=== PATIENT | male | born 1990 | race Caucasian/White ===

== ENCOUNTER → 2017-12-13 | Outpatient (CLI) | payer OTHER ==
[~2017-12-13] MED LIST: ATROPINE SULFATE 0.1 MG/ML 5ML SYR ONE; DOBUTamine HCL 12.5 MG/ML 20 ML VIAL ONE; METOPROLOL TARTRATE 1 MG/ML VIAL ONE
--- NOTE | 2017-12-18 09:40 | DOBUTAMINE ECHO ---
*NOTICE TO RECEIVING [employer] This information is strictly Confidential and protected under [place] law. [place] law prohibits you from making any further disclosure of this information unless further disclosure is expressly permitted by the written consent of the person to whom it pertains or is authorized by law. A general authorization for the release of medical or other information is not sufficient for this purpose. Hospital accepts no responsibility if the information is made available to any other person, INCLUDING THE PATIENT. Interpretation Summary * Name: ELIZABETH COLLIER [id number] Study Date: 12/13/2017 09:55 AM BP: 115/70 mmHg * Patient Location: [facility] HR: 60 * : 1990 (M/d/yyyy) Gender: Male Height: 71 in * Age: 27 yrs Ethnicity: CA Weight: 186 lb * Ordering Physician: Mario Wilhelm * Referring Physician: Mario Wilhelm * Performed By: Owen Arzola RCS * * Reason For Study: CHEST PAIN * BSA: 2.0 m2 * -- Conclusions -- * Borderline left atrial enlargement. * Right ventricular systolic pressure is normal. * Left ventricular systolic function is normal. * Abnormal dobutamine echocardiogram concerning for diffuse ischemia. Procedure Details * DOBUTAMINE ECHO, CPT#[id number] * ECHO COLOR FLOW, CPT #[id number] * ECHO DOPPLER, CPT #[id number] Left Ventricular Findings with Stress * Abnormal dobutamine echocardiogram concerning for diffuse ischemia. Left Ventricle * The left ventricle is normal in size. * There is normal left ventricular wall thickness. * Ejection Fraction = 55-60%. * Left ventricular systolic function is normal. * The left ventricular wall motion is normal at rest. Right Ventricle * The right ventricle is normal in size and function. * The right ventricular systolic function is normal as assessed by tricuspid annular plane systolic excursion (TAPSE) (normal >1.5 cm). Atria * Borderline left atrial enlargement. * Right atrial size is normal. Mitral Valve * The mitral valve anatomy is normal. * There is trace mitral regurgitation. Tricuspid Valve * The tricuspid valve is not well visualized, but is grossly normal. * There is trace tricuspid regurgitation. * Right ventricular systolic pressure is normal. Aortic Valve * The aortic valve is normal in structure and function. * No hemodynamically significant valvular aortic stenosis. * There is no significant aortic regurgitation. Pulmonic Valve * The pulmonic valve is not well seen, but is grossly normal. * Mild pulmonic valvular regurgitation. Great Vessels * The aortic root is normal size. Pericardium * There is no pericardial effusion. Stress Parameters * Normal baseline electrocardiogram. * At peak dobutamine infusion there was upsloping ST depression which improved but became horizontal and slightly downsloping in late recovery. There was also development of frequent ventricular ectopy in the early part of the dobutamine infusion. * The stress portion of this study was personally supervised by the undersigned interpreting physician. * Rest heart rate was '61' BPM. * Rest blood pressure was '115/70' * Maximum heart rate achieved was 155 bpm. * Maximum heart rate was 80 % of maximum age-predicted heart rate. * Maximum blood pressure was '199/116' * Maximum Dobutamine infusion rate was '50' mcg/kg/min. * A total of 2 mg of intravenous Atropine was used to supplement Dobutamine for heart rate response. * Dobutamine infusion was terminated due to end of protocol/maximum medication doses * A total of 15 mg of IV Metoprolol was administered to reverse Dobutamine-induced tachycardia. * The patient did not exhibit any symptoms during drug infusion. Left Ventricular Findings with Stress * Baseline EKG was normal There were significant ST segment changes with peak dobutamine infusion which persisted into recovery There was significant ventricular ectopy during the early phase of dobutamine infusion Baseline echocardiographic images were normal There was normal augmentation at low dose dobutamine with worsening of function at peak infusion and into recovery There are no discrete wall motion abnormalities but generalized reduced LV function and poor augmentation suggestive of diffuse ischemia. No symptoms reported MMode 2D Measurements and Calculations IVSd 1.1 cm IVSs 1.4 cm LVIDd 5.0 cm LVIDs 3.8 cm LVPWd 1.1 cm LVPWs 1.3 cm IVS/LVPW 1.0 FS 25.3 % EDV(Teich) 120.1 ml ESV(Teich) 60.3 ml EF(Teich) 49.8 % EDV(cubed) 127.5 ml ESV(cubed) 53.0 ml EF(cubed) 58.4 % % IVS thick 25.4 % % LVPW thick 26.1 % LV mass(C)d 200.8 grams LV mass(C)dI 98.2 grams/m\S\2 LV mass(C)s 178.8 grams LV mass(C)sI 87.4 grams/m\S\2 SV(Teich) 59.8 ml SI(Teich) 29.2 ml/m\S\2 SV(cubed) 74.4 ml SI(cubed) 36.4 ml/m\S\2 Ao root diam 3.8 cm Ao root area 11.6 cm\S\2 ACS 2.5 cm LA dimension 3.9 cm asc Aorta Diam 3.2 cm LA/Ao 1.0 Doppler Measurements and Calculations MV E max shayla 53.7 cm/sec MV A max shayla 49.9 cm/sec MV E/A 1.1 MV P1/2t max shayla 61.5 cm/sec MV P1/2t 121.5 msec MVA(P1/2t) 1.8 cm\S\2 MV dec slope 148.2 cm/sec\S\2 MV dec time 0.34 sec Ao V2 max 128.3 cm/sec Ao max PG 6.6 mmHg Ao max PG (full) 3.7 mmHg LV V1 max PG 2.9 mmHg LV V1 max 84.5 cm/sec PA V2 max 100.9 cm/sec PA max PG 4.1 mmHg PI max shayla 183.3 cm/sec PI max PG 13.5 mmHg PI dec slope 129.9 cm/sec\S\2 PI P1/2t 413.5 msec TR max shayla 216.7 cm/sec
== END | disposition home or self-care (01) ==
LOC: C.CPL 09:48
PROVIDERS: ATTEND Internal Medicine
DX: R07.9 Chest pain, unspecified (principal); F28 Other psychotic disorder not due to a substance or known physiological condition; Z79.899 Other long term (current) drug therapy; F40.10 Social phobia, unspecified

== ENCOUNTER → 2018-04-04 | Day surgery (SDC) | payer OTHER ==
[~2018-04-04] VITALS: Ht 180.3 cm; Wt 84.0 kg
[~2018-04-04] MED LIST changes: +ABL/15 PO; +ASPI81TA28 PO; -ATROPINE SULFATE 0.1 MG/ML 5ML SYR ONE; +BENZ-89 PO; +CICL160A INFIL; +DIPH50TA10 PO; -DOBUTamine HCL 12.5 MG/ML 20 ML VIAL ONE; +FENTANYL CITRATE INJ 50 MCG/1 ML 2 ML VIAL ONE; +HEPARIN SOD (PORCINE) 1000 UNIT/ML 10 ML VIAL ONE; +LEVA45AE INH; +METO-551 PO; -METOPROLOL TARTRATE 1 MG/ML VIAL ONE; +MIDAZOLAM HCL 1 MG/ML 2ML VIAL ONE; +NITROGLYCERIN/D5W 100MCG/ML 20ML SYR ONE; +NTRGSL/4 SL; +NiCARDipine HCL INJ 2.5 MG/ML 10 ML AMP ONE; +PRX/40 PO
[2018-04-04 07:15] VITALS: BP 105/57; PULSE 61; TEMP 36.6; O2SAT 97; Ht 180.3 cm; Wt 84.0 kg
--- NOTE | 2018-04-04 07:52 | Pre Sedation Assessment ---
Pre Sedation Assessment General Date of Sedation: Apr 04, 2018. Vital Signs Past 12 Hours Date Time Temp Pulse Resp B/P (MAP) Pulse Ox O2 Delivery O2 Flow Rate FiO2 04/04/18 07:15 36.6 61 16 105/57 (73) 97 Room Air Review Cardiovascular: regular rate, rhythm, no edema Lungs: chest non-tender, lungs clear Pre-Sedation Airway Assessment Smoking Status: Current Every Day Smoker Hx of Sleep Apnea: No Short Thick Neck: No Thyro-mental Distance: > 3 Finger Breadths Oral Cavity: WNL Mallampati Classification: Class II ASA Classification: Class III NPO Status Date of Last Intake of Fluids: Apr 03, 2018 Time of Last Intake of Fluids: 1500 Date of Last Intake of Solids: Apr 03, 2018 Time of Last Intake of Solids: 1500 Procedure Planning Contraindications for Sedation: None Current Medications Reviewed: Yes Notes The planned sedation has been discussed with the patient. Informed Consent was obtained. I have identified the patient, determined the appropriateness of sedation and have assessed the patient immediately prior to the procedure. All medicine(s) and interventions are by my order.
--- NOTE | 2018-04-04 07:53 | History & Physical Bridge Note ---
H&P Re-Evaluation Bridge Note: I have examined the patient, reviewed the History & Physical and in the interval since the performance of the History & Physical I have noted the following changes of clinical significance: No changes noted
--- NOTE | 2018-04-04 08:08 | History and Physical ---
History & Physical Date Apr 04, 2018. History of Present Illness Mr. Leija is a 27-year-old male with a past medical history significant for hypertension, asthma, and bipolar disorder who presents to the clinic for follow-up. The patient is currently incarcerated at [facility]. The patient was initially seen in October 2017 in consult for chest pain. At that time, he noted a 3 year history of intermittent episodes of chest pain, about 3- 4 times per week. He described the discomfort as a crushing pain or as though "someone is sitting on his chest." It occurred in the left side of his chest and occasionally radiated to the center of his chest, into his back, and down his left arm. He had associated lightheadedness and shortness of breath. The discomfort occurred with exertion such as walking, running, or lifting weights. It typically lasted for about 30 minutes after resting. He could also have the discomfort while at rest. The rest pain usually lasted about 10-20 minutes on average. He would take nitro as needed for the discomfort when it was more severe or lasted longer in duration. The discomfort would usually resolve after 5-10 minutes of taking nitro. He was ordered a dobutamine stress echo for further evaluation of myocardial ischemia (a stress echo was unable to be performed as per the policy at [facility]). The dobutamine performed on 12/13/[address] changes with peak dobutamine infusion which persisted into recovery. Baseline echocardiographic images were normal. There were no discrete wall motion abnormalities, but generalized reduced LV function and poor augmentation with dobutamine infusion. Additional History Hepatic Disease: No Endocrine Disorder: No Kidney Disease: No Hypertension: Yes Heart Disease: No Bleeding Tendencies: No Infectious Diseases: No Home Medications Scheduled Aripiprazole (Abilify), 1 TAB PO DAILY Aspirin (Aspirin Ec), 81 MG PO DAILY Benztropine Mesylate (Cogentin), 1 MG PO DAILY Ciclesonide (Alvesco), 1 PUFF INFIL BID Diphenhydramine Hcl (Sleep) (Diphenhydramine Hcl), 1 TAB PO HS Levalbuterol Tartrate (Levalbuterol Tartrate Hfa), 2 PUFFS INH TID Metoprolol Tartrate (Lopressor), 1 TAB PO DAILY Nitroglycerin (Nitrostat), 1 TAB SL UD Paroxetine (Paroxetine HCl), 1 TAB PO DAILY Physical Examination Skin: warm/dry Neck: supple Respiratory/Chest: lungs clear, normal breath sounds Cardiovascular: regular rate, rhythm, no edema Abdomen / GI: normal bowel sounds Extremities: normal inspection Neurologic/Psych: alert, oriented x 3 Diagnosis Abnormal stress test Atypical chest pain ASA Classification: ASA Class II Plan of Treatment Proceed with left heart catheterization.
--- NOTE | 2018-04-04 09:01 | Post Sedation Assessment ---
Post Sedation Assessment General Date of Sedation Apr 04, 2018. Vital Signs: Vital Signs Past 12 Hours Date Time Temp Pulse Resp B/P (MAP) Pulse Ox O2 Delivery O2 Flow Rate FiO2 04/04/18 07:15 36.6 61 16 105/57 (73) 97 Room Air Post Procedure Recovery Score Activity: (2) Moves 4 extremities * Respiration: (2) Deep breath/cough Circulation: (2) +/-20% PreAnes Value Consciousness: (2) Fully Awake Oxygen Saturation: (1) O2 needed for >90% Discharge Sedation Level of Care: Phase I Post Sedation Plan On clinical assessment, the patient appears to have tolerated the sedation without complications. Patient is recovering as anticipated. Patient will continue to be monitored by nursing and may be discharged when sedation discharge criteria are met per below protocol. Upon Completions of procedure and additional 15 minutes continue every 5 minute vital signs and the P.A.R. score; then discharge to a Phase I or Fast Track to Phase II per the following guidelines: * Discharge Patient to appropriate Phase II area if PAR is 8 or greater or return to pre- procedure baseline. The post - procedure orders will be as directed. * If PAR score is less than 8 or not return to pre-procedure baseline then patient will follow Phase I monitoring till PAR is reached for Phase II. The Phase I may be done in procedure room or may call to secure a Phase I area. * If naloxone or flumazenil are used for reversal, hold in Phase I for an additional 60 -120 minutes before discharge to Phase II. Please call the Sedation Physician to re-evaluate and complete post-note for discharge to Phase II area. Do NOT discharge from procedure sedation or Phase 1 until post- sedation evaluation note is complete by procedure /sedation MD Sedation Discharge Instructions to be given to the patient at discharge to home.
--- NOTE | 2018-04-04 09:16 | Cardiac Catheterization ---
Procedure Note Procedure Date Apr 04, 2018. Pre-Procedure Diagnosis Positive Stress Test AUC Score 7 Post-Procedure Diagnosis Normal Coronary Arteries, Normal Intracardiac Pressures Procedure(s) Performed Coronary Angiography, Left Heart Cath Decontamination Worker Doug Dust Box Tender(s) José Miguel Estimated Blood Loss 10 Medication(s) Fentanyl, Heparin, Nicardipine, Versed, Lidocaine 1% Summary of Findings Indication: Abnormal stress test, atypical chest pain Access: 6Fr right radial artery Catheters: [place], JR4 Findings: LM - Short, Angiographically normal LAD - Angiographically normal. Gives off 3 small diagonals before wraps around apex. Circumflex - Large, dominant vessel, angiographically normal RCA - Small, non-dominant, angiographically normal. LVEDP - 11 Arterial Closure: TR Band Summary: 1. Angiographically normal coronary arteries. 2. Normal intracardiac filling pressure Recommendations: Continued ASCVD primary prevention. Continued evaluation for non-cardiac causes of chest pain. Hemodynamics Rest Ao: 100/61/80 Final Ao: 96/53/75 LV: 110/11 Recommendations Medical therapy and/or Counseling Specimens None Radiation Exposure (mGy) 1335 Contrast (mls) 50 Fluids (cc crystalloids) 55 Drains none Anesthesia moderate Procedural Complication(s) None Disposition Home Service Technician Holding/Recovery ACC Data Cardiac Status Clinical evaluation leading to the procedure CAD Presntation: Positive Stress Test Anginal Classification: CCS III Heart Failure: No, NYHA Class: CCS I Cardiogenic Shock w/in 24Hrs: No Cardiac Arrest w/in 24Hrs: No Imaging studies past 6 months: Yes Stress studies past 6 months: Yes Stress Echocardiogram: Yes - Positive, Risk/Extent of Ischemia (Low) Closure Device Percutaneous Entry Location: Radial Closure Device: Radial Band Recommendations: Medical therapy and/or Counseling Intraprocedure Events Significant Dissection: No Perforation: No
--- NOTE | 2018-04-04 09:18 | Discharge Instructions ---
Discharge Instructions Procedure Procedure Date: Apr 04, 2018. Reason for Visit: *Camacho Chest Pain. Discharge Discharge Date: Apr 04, 2018. Discharge Diagnosis: Atypical chest pain Last Recorded Wt (Kilograms): 84 Anesthesia Post Anesthesia Instructions: If you have had General Anesthesia or IV Sedation: * Do not drive today. * Resume driving when surgeon permits. * Do not make important decisions or sign legal documents today. * Call surgeon for: 1. Temperature elevations greater than 101 degrees F. 2. Uncontrollable pain. 3. Excessive bleeding. 4. Persistent nausea and vomiting. 5. Medication intolerance (nausea, vomiting or rash). * For nausea and vomiting use only clear liquids such as: tea, soda, bouillon until nausea subsides, then gradually increase diet as tolerated. * If you have any concerns or questions, call your surgeon's office. If physician is unavailable and it is an emergency, call 911 or go to the nearest emergency room. Instructions Activity Recommendations: limitations as noted below Recommended Home Diet: resume previous diet Allergies: Coded Allergies: No Known Allergies (Unverified , 04/04/18) Follow Up Additional Instructions: ACTIVITY RECOMMENDATIONS: Excess manipulation of the wrist should be avoided for the next 24-48 hours. * No lifting over 2 pounds (approximately a 1/2 gallon of milk) with the utilized arm for 24 hours. * No strenuous activity such as bowling or tennis for 3 days. * Keep the site of the procedure covered with a bandage for 24 hours. *You may shower the day after the procedure. Do not take a tub bath or submerge the puncture site in water for the next 3 days. *Do not operate any motorized equipment for 3 days. SPECIAL CARE INSTRUCTIONS: The site may be slightly bruised and sore following your procedure. Should any of the following occur, contact the Dr. who performed your procedure. 1. Redness/inflammation, swelling, chills, or fever, or colored drainage at procedure site within 3-7 days after your procedure. 2. Coldness, discoloration, ongoing numbness, severe pain, or swelling. Expect mild tingling of hand and tenderness at the puncture site for up to three days. If this persists beyond three days, or other symptoms develop, notify the Dr. who performed your procedure. BLEEDING: If the procedure site on your wrist begins to bleed, do not panic 1. Place 1 or 2 fingers firmly just slightly above the insertion site to stop the bleeding. You may be able to feel your pulse as you hold pressure. 2. Lift your finger after 5 minutes to see if the bleeding has stopped. 3. Once the bleeding has stopped, gently wipe the wrist area clean with a bandage. * If the bleeding from your wrist does not stop after 10 minutes, or if there is a large amount of bleeding or spurting, call 911 ([address] drive yourself to the hospital). SKIN IRRITATION: * You may experience some redness and/or swelling in the area where radiation was administered. If any skin irritation occurs, please contact your family physician. FOLLOW UP VISIT: Keep any scheduled doctor appointments. Follow-up with: as scheduled Ioana Parra Recommendations: Call your doctor if: * Temperature above 101 degrees * Pain not relieved by pain medicine ordered * There is increased drainage or redness from any incision * You have any unanswered questions or concerns. Your Doctors Instructions noted above were prepared by provider Isidro Camacho. Patient Signature Section: Patient Instructions Signature Page Demetrius Heladio Patient (or Guardian) Signature/Date: I have read and understand the instructions given to me by my caregivers. Caregiver/RN/Doctor Signature/Date: The above-named patient and/or guardian has received patient instructions on this date. + Original Patient Signature Page (only) stays with chart. Please make copy for patient.
[2018-04-04 12:30] VITALS: BP 128/66; PULSE 62; O2SAT 97
== END ==
LOC: C.CATH 06:04
PROVIDERS: ATTEND Internal Medicine
DX: R94.39 Abnormal result of other cardiovascular function study (principal); R07.89 Other chest pain; I10 Essential (primary) hypertension; J45.909 Unspecified asthma, uncomplicated; F31.9 Bipolar disorder, unspecified; Z79.82 Long term (current) use of aspirin; Z79.899 Other long term (current) drug therapy